=== PATIENT | male | born 1965 | race Asian ===

== ENCOUNTER 2022-06-17 23:47 | Emergency (ER) | payer BC ==
[~2022-06-17] VITALS: Ht 160 cm; Wt 67.3 kg
[2022-06-18] MEDS ORDERED: LIDOCAINE 1% HCL (LOCAL ANESTH.) INJ 20ML MDV ID ONE (04:00)
[2022-06-18 04:25] VITALS: BP 140/90
== END 2022-06-18 04:28 | disposition home or self-care (01) ==
LOC: ER 23:47
DX: T16.1XXA Foreign body in right ear, initial encounter (principal); X58.XXXA Exposure to other specified factors, initial encounter; Y93.89 Activity, other specified; Y92.89 Other specified places as the place of occurrence of the external cause; Y99.8 Other external cause status
CPT/HCPCS: 99284; J2001